=== PATIENT | female | born 1965 | race Caucasian/White ===

== ENCOUNTER → 2017-12-17 | Outpatient (CLI) | payer OTHER | LOC: M RAD 13:17 | DX: M51.26 Other intervertebral disc displacement, lumbar region (principal); M48.061 Spinal stenosis, lumbar region without neurogenic claudication | CPT/HCPCS: 72148 ==

== ENCOUNTER → 2023-10-08 | Outpatient (CLI) | payer OTHER | LOC: M RAD 07:44 | PROVIDERS: ATTEND Orthopaedic Surgery | DX: M54.2 Cervicalgia (principal); D49.2 Neoplasm of unspecified behavior of bone, soft tissue, and skin | CPT/HCPCS: 78306; A9503 ==

== ENCOUNTER 2023-10-12 13:04 | Emergency (ER) | payer OTHER ==
[~2023-10-12] VITALS: Ht 152.4 cm; Wt 59.1 kg
[2023-10-12] MEDS ORDERED: PARO5TAB PO (13:17)
[2023-10-12] MEDS ORDERED: GABA-282 PO (13:17)
[2023-10-12] MEDS ORDERED: AMIT25TA19 PO (13:17)
[2023-10-12] MEDS ORDERED: ALEN70TA82 PO (13:17)
[2023-10-12] MEDS ORDERED: ATOR40TA75 PO (13:17)
[2023-10-12] MEDS ORDERED: VITA1CAP25 PO (13:17)
[2023-10-12] MEDS: NS 500 ML IV ONE (14:11)
[2023-10-12] MEDS: NS 1,000 ML IV SCH ×2 (14:11→15:57)
[2023-10-12 14:17] LABS: HEMATOCRIT 37.5 % (36.0-47.0); HEMOGLOBIN 13.1 g/dl (12.0-15.5); MEAN CORPUSCULAR HEMOGLOBIN 31.3 pg (27.0-33.0); MEAN CORPUSCULAR HGB CONC 34.9 g/dl (32.0-36.5); MEAN CORPUSCULAR VOLUME 89.7 fl (80.0-96.0); PLATELET COUNT, AUTOMATED 180 10^3/uL (150-450); RED BLOOD COUNT 4.18 10^6/uL (4.00-5.40); WHITE BLOOD COUNT 20.5 10^3/uL (4.0-10.0)
[2023-10-12 14:21] LABS: ALBUMIN 2.4 G/DL (3.2-5.2); BILIRUBIN,DIRECT 0.3 MG/DL (<0.4); BILIRUBIN,TOTAL 0.6 MG/DL (0.3-1.2); CALCIUM LEVEL 8.5 MG/DL (8.3-10.6); CREATININE FOR GFR 3.41 MG/DL (0.55-1.30); GLOMERULAR FILTRATION RATE 14.6 (>45); POTASSIUM SERUM 3.8 MMOL/L (3.5-5.1); TOTAL PROTEIN 5.2 G/DL (5.7-8.2)
[2023-10-12 14:26] LABS: LYMPHOCYTES 2 % (16-44); NEUTROPHILS 96 % (28-66); PLATELET ESTIMATE NORMAL (NORMAL); POLYCHROMASIA 1+
[2023-10-12] MEDS: cefTRIAXone SOD 2 GM in D5W MINI-BAG PLUS 50 ML IV ONE (15:14)
[2023-10-12] MEDS: AZITHROMYCIN INJ 500 MG, VIAL MATE ADAPTER 1 EACH in D5W 250 ML IV ONE (15:48)
[2023-10-12] MEDS ORDERED: HOME MED LIST COMPLETE! XX SCH (15:55)
[2023-10-12] MEDS: MORPHINE 2 MG/ML 1ML VIAL IV PRN (15:57)
[2023-10-12] MEDS: fentaNYL 100 MCG/2 ML INJECTION IV ONE (18:28)
[2023-10-12 19:00] VITALS: BP 105/69; TEMP 97.6; O2SAT 93
== END 2023-10-12 19:08 | disposition short-term general hospital (02) ==
LOC: M ED 13:04
DX: J18.9 Pneumonia, unspecified organism (principal); N17.9 Acute kidney failure, unspecified; G95.89 Other specified diseases of spinal cord; F41.9 Anxiety disorder, unspecified; Z87.891 Personal history of nicotine dependence; Z79.899 Other long term (current) drug therapy
CPT/HCPCS: 71045; 80048; 80076; 83605; 85025; 87040; 93005; 93041; 94760; 96361; 96365; 96374; 96375; 99291; 99292; J0456; J0696; J3010

== ENCOUNTER 2023-12-11 14:58 | Emergency (ER) | payer OTHER ==
[~2023-12-11] VITALS: Ht 152.4 cm; Wt 59.9 kg
[~2023-12-11 14:58] MED LIST: ACYC200C8 PO; ALEN70TA82 PO; AMIT25TA19 PO; AMOX875T; ATOR40TA75 PO; CYCL1CAP2 PO; DEXA4TA PO; GABA-282 PO; LORAPOW30; NORT25CA2; NYST-38 PO; PARO5TAB PO; VITA1CAP25 PO
[2023-12-11 14:59] VITALS: TEMP 97.5
[2023-12-11] MEDS ORDERED: E-Z-GAS II EFFERVESCENT PACKET (SODIUM BICARB./CITRIC ACID/SIMETHICONE) As Ordered ONE (16:40)
[2023-12-11] MEDS ORDERED: E-Z-PAQUE 96% w/w SUSP 176GM BTL As Ordered ONE (16:40)
[2023-12-11] MEDS ORDERED: E-Z-HD 98% w/w 340GM SUSP BTL As Ordered ONE (16:41)
[2023-12-11 17:29] VITALS: BP 157/97; O2SAT 97
[2023-12-11 17:39] LABS: BASO % 0.8 % (0.0-1.0); EOS % 0.4 % (0.0-3.0); HEMATOCRIT 25.6 % (36.0-47.0); LYMPH # 0.8 10^3/uL (1.5-5.0); LYMPH % 15.3 % (24.0-44.0); MEAN CORPUSCULAR HEMOGLOBIN 30.3 pg (27.0-33.0); MEAN CORPUSCULAR HGB CONC 31.3 g/dl (32.0-36.5); MONO # 0.5 10^3/uL (0.0-0.8); MONO % 10.5 % (2.0-8.0); NEUTROPHILS # 3.7 10^3/uL (1.5-8.5); NEUTROPHILS % 72.4 % (36.0-66.0); PLATELET COUNT, AUTOMATED 220 10^3/uL (150-450); RED BLOOD COUNT 2.64 10^6/uL (4.00-5.40)
[2023-12-11] MEDS: NS 1,000 ML IV SCH (17:51)
[2023-12-11 17:57] LABS: CALCIUM LEVEL 8.8 MG/DL (8.3-10.6); CREATININE FOR GFR 3.66 MG/DL (0.55-1.30); GLOMERULAR FILTRATION RATE 13.5 (>45); POTASSIUM SERUM 3.8 MMOL/L (3.5-5.1)
[2023-12-12] MEDS ORDERED: POTA-298 PO (12:02)
== END 2023-12-11 19:52 | disposition short-term general hospital (02) ==
LOC: M ED 14:58
DX: Q39.4 Esophageal web (principal); N18.6 End stage renal disease; J44.9 Chronic obstructive pulmonary disease, unspecified; Z79.2 Long term (current) use of antibiotics; Z79.899 Other long term (current) drug therapy

== ENCOUNTER 2023-12-25 13:36 | Observation (INO) | payer OTHER ==
[~2023-12-25] VITALS: Ht 152.4 cm; Wt 58.8 kg
[~2023-12-25 13:36] MED LIST changes: -NORT25CA2; +NORT25CA2 PO; +POTA-298 PO
[2023-12-25] MEDS: LIDOCAINE 2% 5ML JELLY UROJET TOP ONE (14:15)
[2023-12-25] MEDS: NS 1,000 ML IV ONE (14:24)
[2023-12-25 14:46] LABS: BASO # 0.1 10^3/uL (0.0-0.2); EOS # 0.1 10^3/uL (0.0-0.5); EOS % 2.5 % (0.0-3.0); HEMATOCRIT 24.1 % (36.0-47.0); HEMOGLOBIN 7.5 g/dl (12.0-15.5); LYMPH # 0.7 10^3/uL (1.5-5.0); LYMPH % 12.7 % (24.0-44.0); MEAN CORPUSCULAR HEMOGLOBIN 30.5 pg (27.0-33.0); MEAN CORPUSCULAR HGB CONC 31.1 g/dl (32.0-36.5); MONO # 0.4 10^3/uL (0.0-0.8); MONO % 7.8 % (2.0-8.0); NEUTROPHILS # 3.8 10^3/uL (1.5-8.5); NEUTROPHILS % 75.2 % (36.0-66.0); PLATELET COUNT, AUTOMATED 212 10^3/uL (150-450); RED BLOOD COUNT 2.46 10^6/uL (4.00-5.40); WHITE BLOOD COUNT 5.1 10^3/uL (4.0-10.0)
[2023-12-25 15:12] LABS: CK-MB VALUE MASS < 1.0 NG/ML (<3.6)
[2023-12-25 15:13] LABS: LIPASE 47 U/L (12-53)
[2023-12-25 15:14] LABS: CPK CREATINE PHOSPHOKINASE 26 U/L (34-145); MB/CK RELATIVE INDEX 3.84 (< OR =4)
[2023-12-25 15:15] LABS: ALBUMIN 2.7 G/DL (3.2-5.2); ALKALINE PHOSPHATASE 94 U/L (46-116); ALT/SGPT < 9 U/L (7.0-40); AST/SGOT < 8 U/L (<34); BILIRUBIN,DIRECT 0.1 MG/DL (<0.4); BILIRUBIN,TOTAL 0.4 MG/DL (0.3-1.2); BLOOD UREA NITROGEN 14 MG/DL (9-23); CALCIUM LEVEL 8.4 MG/DL (8.3-10.6); CARBON DIOXIDE LEVEL 33 MMOL/L (20-31); CHLORIDE LEVEL 104 MMOL/L (98-107); CREATININE FOR GFR 3.23 MG/DL (0.55-1.30); GLOMERULAR FILTRATION RATE 15.6 (>45); GLUCOSE, FASTING 86 MG/DL (74-106); POTASSIUM SERUM 3.6 MMOL/L (3.5-5.1); SODIUM LEVEL 140 MMOL/L (136-145); TOTAL PROTEIN 5.2 G/DL (5.7-8.2)
[2023-12-25 15:16] LABS: FREE T4 0.88 NG/DL (0.89-1.76)
[2023-12-25 15:17] LABS: THYROID STIMULATING HORMONE 1.889 uIU/ML (0.55-4.78)
[2023-12-25 16:34] LABS: CK-MB VALUE MASS < 1.0 NG/ML (<3.6)
[2023-12-25 16:37] LABS: CPK CREATINE PHOSPHOKINASE 25 U/L (34-145)
[2023-12-25] MEDS ORDERED: ACETAMINOPHEN TAB 650MG DOSE (2X325MG) PO PRN (18:40)
[2023-12-25] MEDS ORDERED: METOCLOPRAMIDE INJ 10MG/2ML VIAL IV PRN (18:50)
[2023-12-25] MEDS ORDERED: SENOKOT S TAB PO PRN (18:50)
[2023-12-25 19:11] LABS: BASO # 0.1 10^3/uL (0.0-0.2); BASO % 1.2 % (0.0-1.0); EOS # 0.2 10^3/uL (0.0-0.5); EOS % 3.6 % (0.0-3.0); HEMATOCRIT 23.7 % (36.0-47.0); HEMOGLOBIN 7.5 g/dl (12.0-15.5); LYMPH # 0.8 10^3/uL (1.5-5.0); MEAN CORPUSCULAR HEMOGLOBIN 30.6 pg (27.0-33.0); MEAN CORPUSCULAR HGB CONC 31.6 g/dl (32.0-36.5); MEAN CORPUSCULAR VOLUME 96.7 fl (80.0-96.0); MONO # 0.3 10^3/uL (0.0-0.8); MONO % 6.3 % (2.0-8.0); NEUTROPHILS # 3.8 10^3/uL (1.5-8.5); NEUTROPHILS % 73.5 % (36.0-66.0); PLATELET COUNT, AUTOMATED 219 10^3/uL (150-450); RED BLOOD COUNT 2.45 10^6/uL (4.00-5.40); WHITE BLOOD COUNT 5.2 10^3/uL (4.0-10.0)
[2023-12-25 19:32] LABS: PERCENT SATURATION 18.4 % (13.2-45.0)
[2023-12-25] MEDS ORDERED: PANT40TA29 PO (19:34)
[2023-12-25] MEDS ORDERED: SYMB16INH INH (19:34)
[2023-12-25] MEDS ORDERED: ATIV1TAB10 PO (19:34)
[2023-12-25] MEDS ORDERED: BACT400T PO (19:34)
[2023-12-25] MEDS ORDERED: VENTAER INH (19:34)
[2023-12-25] MEDS ORDERED: BUME2TAB3 PO (19:34)
[2023-12-25] MEDS ORDERED: ACYC200C8 PO (19:34)
[2023-12-25] MEDS ORDERED: HOME MED LIST COMPLETE! XX SCH (19:40)
[2023-12-25] MEDS: CEFEPIME HCL 2 GM in D5W MINI-BAG PLUS 50 ML IV ONE (20:10)
[2023-12-25] MEDS: ACYCLOVIR 200 MG CAPSULE PO SCH (20:51)
[2023-12-25] MEDS: VANCOMYCIN HCL 750 MG, VIAL MATE ADAPTER 1 EACH in D5W 250 ML IV ONE (20:51)
[2023-12-25] MEDS: VANCOMYCIN HCL 500 MG in D5W MINI-BAG PLUS 100 ML IV ONE (21:55)
[2023-12-26] VITALS (7 sets, daily range): BP systolic 132–144; BP diastolic 78–85; TEMP 97.9–98.1; O2SAT 84–95
[2023-12-26] MEDS ORDERED: LIDOCAINE 1% SDV 5ML VIAL SC PRN (06:00)
[2023-12-26] MEDS ORDERED: HEPARIN 1,000UNITS/ML 10ML VIAL (FOR RADIOLOGY & DIALYSIS ONLY) IV PRN (06:00)
[2023-12-26] MEDS ORDERED: SODIUM CHLORIDE 0.9% 1000ML IV PRN (06:00)
[2023-12-26 06:52] LABS: HEMATOCRIT 26.5 % (36.0-47.0); HEMOGLOBIN 8.3 g/dl (12.0-15.5); MEAN CORPUSCULAR HEMOGLOBIN 30.2 pg (27.0-33.0); MEAN CORPUSCULAR HGB CONC 31.3 g/dl (32.0-36.5); MEAN CORPUSCULAR VOLUME 96.4 fl (80.0-96.0); PLATELET COUNT, AUTOMATED 212 10^3/uL (150-450); RED BLOOD COUNT 2.75 10^6/uL (4.00-5.40); WHITE BLOOD COUNT 7.5 10^3/uL (4.0-10.0)
[2023-12-26 07:26] LABS: ALBUMIN 2.9 G/DL (3.2-5.2); ALKALINE PHOSPHATASE 91 U/L (46-116); ALT/SGPT < 9 U/L (7.0-40); AST/SGOT 12 U/L (<34); BILIRUBIN,TOTAL 0.3 MG/DL (0.3-1.2); BLOOD UREA NITROGEN 20 MG/DL (9-23); CALCIUM LEVEL 9.1 MG/DL (8.3-10.6); CARBON DIOXIDE LEVEL 27 MMOL/L (20-31); CHLORIDE LEVEL 105 MMOL/L (98-107); GLOMERULAR FILTRATION RATE 12.9 (>45); GLUCOSE, FASTING 84 MG/DL (74-106); MAGNESIUM LEVEL 1.7 MG/DL (1.8-2.4); POTASSIUM SERUM 3.6 MMOL/L (3.5-5.1); SODIUM LEVEL 141 MMOL/L (136-145); TOTAL PROTEIN 5.4 G/DL (5.7-8.2)
[2023-12-26 07:37] LABS: PROCALCITONIN 0.21 ng/ml
[2023-12-26] MEDS: CEFEPIME HCL 1 GM in D5W MINI-BAG PLUS 50 ML IV SCH ×2 (07:39→19:59)
[2023-12-26] MEDS: dexAMETHasone 4 MG TAB PO SCH (07:39)
[2023-12-26] MEDS: PANTOPRAZOLE 40MG TAB (PROTONIX) PO SCH (07:39)
[2023-12-26] MEDS ORDERED: VANCOMYCIN HCL 1,000 MG, VIAL MATE ADAPTER 1 EACH in D5W 250 ML IV SCH ×2 (09:00→16:00)
[2023-12-26 09:44] LABS: VANCOMYCIN RANDOM 22.3 UG/ML
[2023-12-26] MEDS: HEPARIN 1,000UNITS/ML 10ML VIAL (FOR RADIOLOGY & DIALYSIS ONLY) XX SCH (09:47)
[2023-12-26] MEDS: IRON SUCROSE 100MG 5ML VIAL IV SCH (10:55)
[2023-12-26] MEDS: DARBEPOETIN 200MCG/0.4ML *DIALYSIS* SYRINGE IV SCH (11:43)
[2023-12-26] MEDS: MAG SULF 1GM/100ML (MAG RUN) 1 GM in IV 1 EA IV SCH (12:29)
[2023-12-26] MEDS ORDERED: VANCOMYCIN HCL 750 MG, VIAL MATE ADAPTER 1 EACH in D5W 250 ML IV SCH (16:00)
[2023-12-26] MEDS: LORazepam 0.5 MG TAB PO PRN (22:59)
[2023-12-27] VITALS (10 sets, daily range): BP systolic 128–153; BP diastolic 78–93; TEMP 97.5–97.9; O2SAT 85–99
[2023-12-27] MEDS: LEVALBUTEROL HFA 45MCG/ACT 15GM INHALER INH ONE (00:59)
[2023-12-27 06:11] LABS: BASO # 0.1 10^3/uL (0.0-0.2); BASO % 0.6 % (0.0-1.0); EOS % 0.2 % (0.0-3.0); HEMATOCRIT 23.9 % (36.0-47.0); HEMOGLOBIN 7.9 g/dl (12.0-15.5); LYMPH # 0.8 10^3/uL (1.5-5.0); LYMPH % 7.7 % (24.0-44.0); MEAN CORPUSCULAR HEMOGLOBIN 31.5 pg (27.0-33.0); MEAN CORPUSCULAR HGB CONC 33.1 g/dl (32.0-36.5); MEAN CORPUSCULAR VOLUME 95.2 fl (80.0-96.0); MONO # 0.5 10^3/uL (0.0-0.8); MONO % 4.7 % (2.0-8.0); NEUTROPHILS # 8.7 10^3/uL (1.5-8.5); NEUTROPHILS % 86.1 % (36.0-66.0); PLATELET COUNT, AUTOMATED 203 10^3/uL (150-450); RED BLOOD COUNT 2.51 10^6/uL (4.00-5.40); WHITE BLOOD COUNT 10.1 10^3/uL (4.0-10.0)
[2023-12-27 06:31] LABS: CALCIUM LEVEL 9.4 MG/DL (8.3-10.6); CREATININE FOR GFR 2.74 MG/DL (0.55-1.30); GLOMERULAR FILTRATION RATE 18.8 (>45); MAGNESIUM LEVEL 2.6 MG/DL (1.8-2.4); POTASSIUM SERUM 3.8 MMOL/L (3.5-5.1)
[2023-12-27] MEDS: MAGNESIUM OXIDE 400MG TAB (MAG-OX) PO SCH (08:06)
[2023-12-27] MEDS ORDERED: DOXY-440 PO (11:50)
[2023-12-27] MEDS ORDERED: CEFD1CAP9 PO (11:50)
[2024-01-02] MEDS ORDERED: PANT40TA29 PO (11:26)
[2024-01-02] MEDS ORDERED: BACT400T PO (11:27)
== END 2023-12-27 14:10 | disposition home or self-care (01) ==
LOC: EDBD 13:36 → M ED 13:36 → INTOOBSV 18:38 → M ED INP 18:38 → M MSPAV 12-26 04:12
PROVIDERS: ADMIT Hospitalist; ATTEND Hospitalist
DX: I95.9 Hypotension, unspecified (principal); C90.00 Multiple myeloma not having achieved remission; N18.6 End stage renal disease; Z99.2 Dependence on renal dialysis; R42 Dizziness and giddiness; G62.9 Polyneuropathy, unspecified; F32.A Depression, unspecified; E78.5 Hyperlipidemia, unspecified; K22.2 Esophageal obstruction; J98.11 Atelectasis; D49.2 Neoplasm of unspecified behavior of bone, soft tissue, and skin; M54.2 Cervicalgia; D64.9 Anemia, unspecified; M81.0 Age-related osteoporosis without current pathological fracture; F41.9 Anxiety disorder, unspecified; Z80.3 Family history of malignant neoplasm of breast; Z79.899 Other long term (current) drug therapy; Z87.891 Personal history of nicotine dependence
CPT/HCPCS: 36415; 51701; 71045; 80047; 80048; 80053; 80076; 80202; 81001; 82550; 82553; 83550; 83605; 83690; 83735; 84145; 84439; 84443; 84484; 85025; 85027; 86850; 86870; 86900; 86901; 87040; 87641; 93005; 93041; 94640; 94760; 96365; 96366; 96367; 96368; 97116; 97161; 99285; J0692; J0882; J1756; J3370; J3475

== ENCOUNTER 2024-01-04 10:31 | Emergency (ER) | payer OTHER ==
[~2024-01-04] VITALS: Ht 152.4 cm; Wt 57.7 kg
[~2024-01-04 10:31] MED LIST changes: +ATIV1TAB10 PO; +BACT400T PO; +BUME2TAB3 PO; +CEFD1CAP9 PO; +DOXY-440 PO; +PANT40TA29 PO; +SYMB16INH INH; +VENTAER INH
[2024-01-04 13:33] VITALS: BP 133/68; TEMP 96.1; O2SAT 98
== END 2024-01-04 13:37 | disposition home or self-care (01) ==
LOC: M ED 10:31
DX: S82.444A Nondisplaced spiral fracture of shaft of right fibula, initial encounter for closed fracture (principal); Y92.019 Unspecified place in single-family (private) house as the place of occurrence of the external cause; Y93.9 Activity, unspecified; Y99.9 Unspecified external cause status; Z79.51 Long term (current) use of inhaled steroids; Z79.899 Other long term (current) drug therapy

== ENCOUNTER 2024-01-09 14:59 | Outpatient (CLI) | payer OTHER ==
[~2024-01-09] VITALS: Ht 152.4 cm; Wt 57.7 kg
[2024-01-09 15:10] VITALS: BP 91/55; O2SAT 94
[2024-01-09] MEDS: diphenhydrAMINE 25MG CAP PO ONE (15:34)
[2024-01-09] MEDS: ACETAMINOPHEN TAB 650MG DOSE (2X325MG) PO ONE (15:34)
[2024-01-09 15:48] VITALS: BP 87/48; TEMP 97.2; O2SAT 94
[2024-01-09 16:04] VITALS: BP 90/55; O2SAT 97
[2024-01-09 16:48] VITALS: BP 92/52; O2SAT 96
[2024-01-09 17:48] VITALS: BP 100/59; TEMP 97; O2SAT 100
== END 2024-01-09 17:55 ==
LOC: M INFU 14:59
PROVIDERS: ATTEND Internal Medicine Nephrology
DX: N17.9 Acute kidney failure, unspecified (principal); D64.9 Anemia, unspecified
CPT/HCPCS: 36430; P9016

== ENCOUNTER → 2024-01-09 | Outpatient (CLI) | payer OTHER | LOC: M LAB 11:08 | PROVIDERS: ATTEND Internal Medicine Nephrology | DX: D64.9 Anemia, unspecified (principal) ==

== ENCOUNTER 2024-01-17 10:49 | Inpatient (IN) | payer OTHER ==
[~2024-01-17] VITALS: Ht 152.4 cm; Wt 63.2 kg
[2024-01-17 11:33] LABS: ABG HCO3 21.3 MMOL/L (22.0-26.0); ABG O2 SATURATION 94.8 % (95.0-99.0); ABG PARTIAL PRESSURE CO2 35.1 mmHg (35.0-45.0); ABG PARTIAL PRESSURE O2 78.2 mmHg (75.0-100.0); ABG STANDARD HCO3 21.9 MMOL/L. (22.0-26.0); ABG TOTAL CO2 22.4 MMOL/L (23.0-31.0); ABG pH (ARTERIAL) 7.401 UNITS (7.350-7.450)
[2024-01-17] MEDS: NS 500 ML IV ONE ×2 (11:33→12:40)
[2024-01-17 11:45] LABS: INR 1.19; PARTIAL THROMBOPLASTIN TIME 33.6 SECONDS (24.8-34.2); PROTHROMBIN TIME 14.8 SECONDS (12.5-14.5)
[2024-01-17 11:46] LABS: BASO % 0.7 % (0.0-1.0); EOS % 0.2 % (0.0-3.0); HEMATOCRIT 30.9 % (36.0-47.0); LYMPH # 0.1 10^3/uL (1.5-5.0); LYMPH % 3.1 % (24.0-44.0); MEAN CORPUSCULAR HEMOGLOBIN 31.8 pg (27.0-33.0); MEAN CORPUSCULAR HGB CONC 32.4 g/dl (32.0-36.5); MEAN CORPUSCULAR VOLUME 98.4 fl (80.0-96.0); MONO % 0.5 % (2.0-8.0); NEUTROPHILS % 94.6 % (36.0-66.0); PLATELET COUNT, AUTOMATED 155 10^3/uL (150-450); RED BLOOD COUNT 3.14 10^6/uL (4.00-5.40); WHITE BLOOD COUNT 4.2 10^3/uL (4.0-10.0)
[2024-01-17 11:48] LABS: CK-MB VALUE MASS 1.1 NG/ML (<3.6)
[2024-01-17 11:49] LABS: AMYLASE 105 U/L (30-118)
[2024-01-17 11:50] LABS: CPK CREATINE PHOSPHOKINASE 140 U/L (34-145); MB/CK RELATIVE INDEX 0.78 (< OR =4)
[2024-01-17 11:57] LABS: PROCALCITONIN 15.33 ng/ml
[2024-01-17 11:59] LABS: ALBUMIN 2.5 G/DL (3.2-5.2); ALKALINE PHOSPHATASE 110 U/L (46-116); ALT/SGPT 43 U/L (7.0-40); AST/SGOT 48 U/L (<34); BILIRUBIN,DIRECT < 0.1 MG/DL (<0.4); BILIRUBIN,TOTAL 0.2 MG/DL (0.3-1.2); BLOOD UREA NITROGEN 39 MG/DL (9-23); CALCIUM LEVEL 8.3 MG/DL (8.3-10.6); CARBON DIOXIDE LEVEL 26 MMOL/L (20-31); CHLORIDE LEVEL 102 MMOL/L (98-107); CREATININE FOR GFR 5.35 MG/DL (0.55-1.30); GLOMERULAR FILTRATION RATE 8.7 (>45); GLUCOSE, FASTING 84 MG/DL (74-106); POTASSIUM SERUM 4.7 MMOL/L (3.5-5.1); SODIUM LEVEL 136 MMOL/L (136-145)
[2024-01-17] MEDS ORDERED: HEPARIN 1,000UNITS/ML 10ML VIAL (FOR RADIOLOGY & DIALYSIS ONLY) IV PRN (12:35)
[2024-01-17] MEDS ORDERED: HEPARIN 1,000UNITS/ML 10ML VIAL (FOR RADIOLOGY & DIALYSIS ONLY) XX SCH (12:35)
[2024-01-17] MEDS ORDERED: SODIUM CHLORIDE 0.9% 1000ML IV PRN (12:35)
[2024-01-17 13:44] LABS: APPEARANCE, URINE CLEAR (CLEAR); BACTERIA, URINE AUTO NEGATIVE (NEGATIVE); BILIRUBIN, URINE AUTO NEGATIVE (NEGATIVE); BLOOD, URINE BLOOD 1+ (NEGATIVE); COLOR, URINE STRAW (YELLOW); GLUCOSE, URINE (UA) AUTO NEGATIVE (NEGATIVE); KETONE, URINE AUTO NEGATIVE (NEGATIVE); LEUKOCYTE ESTERASE, URINE AUTO NEGATIVE (NEGATIVE); MUCUS, URINE SMALL (NEGATIVE); NITRITE, URINE AUTO NEGATIVE (NEGATIVE); PROTEIN, URINE AUTO 1+ mg/dL (NEGATIVE); RBC, URINE AUTO 1 /HPF (0-3); SPECIFIC GRAVITY URINE AUTO 1.005 (1.002-1.035); SQUAMOUS EPITHELIAL CELL UR AU 3 /HPF (0-6); UROBILINOGEN, URINE AUTO 0.2 mg/dL (0.0-2.0); WBC, URINE AUTO 3 /HPF (0-3)
[2024-01-17] MEDS ORDERED: VANCOMYCIN HCL 1,000 MG, VIAL MATE ADAPTER 1 EACH in NS 250 ML IV SCH ×2 (13:50→16:00)
[2024-01-17] MEDS ORDERED: **NOTE PATIENT COMMENT** MISC XX SCH (13:50)
[2024-01-17] MEDS: IPRATROPIUM 0.5MG/ALBUTEROL 2.5MG INH SOL UD 3ML (DUONEB) NEB ONE (13:53)
[2024-01-17] MEDS: NS 1,000 ML IV SCH (14:37)
[2024-01-17] MEDS: ACETAMINOPHEN TAB 650MG DOSE (2X325MG) PO PRN (14:38)
[2024-01-17] MEDS ORDERED: SENN-83 PO (14:40)
[2024-01-17] MEDS ORDERED: DEXA4TA PO (14:40)
[2024-01-17] MEDS ORDERED: ACET1TAB55 PO (14:42)
[2024-01-17] MEDS ORDERED: HOME MED LIST COMPLETE! XX SCH (14:45)
[2024-01-17] MEDS: LORazepam 0.5 MG TAB PO SCH (15:53)
[2024-01-17 19:34] VITALS: BP 119/58; TEMP 97.8; O2SAT 98
[2024-01-17] MEDS ORDERED: SYMBICORT 160/4.5MCG INHALER 6GM INH SCH (20:00)
[2024-01-17] MEDS: NYSTATIN 500,000U/5ML SUSP UDC PO SCH (21:00)
[2024-01-17] MEDS: ACYCLOVIR 200 MG CAPSULE PO SCH (21:49)
[2024-01-17] MEDS: NORTRIPTYLINE 25 MG CAP PO SCH (21:49)
[2024-01-17] MEDS: GABAPENTIN 300 MG CAP PO SCH (21:49)
[2024-01-17] MEDS: BACTRIM 80MG/400MG TAB PO SCH (21:49)
[2024-01-17] MEDS: VANCOMYCIN HCL 1,000 MG, VIAL MATE ADAPTER 1 EACH in D5W 250 ML IV ONE (21:49)
[2024-01-17] MEDS: SENNA 8.6 MG TAB (SENOKOT) PO SCH (21:49)
[2024-01-17] MEDS ORDERED: LEVALBUTEROL 1.25MG 0.5ML CONCENTRATE NEB INH PRN (23:50)
[2024-01-18] VITALS (20 sets, daily range): BP systolic 94–164; BP diastolic 51–85; TEMP 96.8–98; O2SAT 88–99
[2024-01-18] MEDS: IPRATROPIUM 0.5MG/ALBUTEROL 2.5MG INH SOL UD 3ML (DUONEB) NEB PRN (00:11)
[2024-01-18] MEDS: FUROSEMIDE 100MG/10ML VIAL IV ONE (00:18)
[2024-01-18] MEDS: IPRATROPIUM 0.5MG/ALBUTEROL 2.5MG INH SOL UD 3ML (DUONEB) NEB STA (00:56)
[2024-01-18 01:31] LABS: ABG BASE EXCESS -7.4 (-2.0-2.0); ABG HCO3 17.7 MMOL/L (22.0-26.0); ABG O2 SATURATION 95.5 % (95.0-99.0); ABG PARTIAL PRESSURE CO2 34.4 mmHg (35.0-45.0); ABG PARTIAL PRESSURE O2 84.7 mmHg (75.0-100.0); ABG STANDARD HCO3 18.4 MMOL/L. (22.0-26.0); ABG TOTAL CO2 18.7 MMOL/L (23.0-31.0); ABG pH (ARTERIAL) 7.329 UNITS (7.350-7.450)
[2024-01-18 04:33] LABS: HEMATOCRIT 27.3 % (36.0-47.0); HEMOGLOBIN 8.8 g/dl (12.0-15.5); MEAN CORPUSCULAR HEMOGLOBIN 31.5 pg (27.0-33.0); MEAN CORPUSCULAR HGB CONC 32.2 g/dl (32.0-36.5); MEAN CORPUSCULAR VOLUME 97.8 fl (80.0-96.0); PLATELET COUNT, AUTOMATED 129 10^3/uL (150-450); RED BLOOD COUNT 2.79 10^6/uL (4.00-5.40); WHITE BLOOD COUNT 4.2 10^3/uL (4.0-10.0)
[2024-01-18 04:46] LABS: VANCOMYCIN RANDOM 18.6 UG/ML
[2024-01-18 04:48] LABS: ALBUMIN 2.2 G/DL (3.2-5.2); CALCIUM LEVEL 7.9 MG/DL (8.3-10.6); CREATININE FOR GFR 5.25 MG/DL (0.55-1.30); GLOMERULAR FILTRATION RATE 8.9 (>45); PHOSPHORUS LEVEL 9.5 MG/DL (2.4-5.1); POTASSIUM SERUM 4.6 MMOL/L (3.5-5.1)
[2024-01-18] MEDS ORDERED: SODIUM CHLORIDE 0.9% 1000ML IV PRN (06:00)
[2024-01-18] MEDS ORDERED: LIDOCAINE 1% SDV 5ML VIAL SC PRN (06:00)
[2024-01-18] MEDS ORDERED: HEPARIN 1,000UNITS/ML 10ML VIAL (FOR RADIOLOGY & DIALYSIS ONLY) XX SCH (06:00)
[2024-01-18] MEDS: PANTOPRAZOLE 40MG TAB (PROTONIX) PO ONE (06:16)
[2024-01-18] MEDS: ATORVASTATIN 20 MG TAB PO SCH (06:16)
[2024-01-18] MEDS: PARoxetine 10MG TABLET PO SCH (06:17)
[2024-01-18] MEDS: ATORVASTATIN 20 MG TAB PO ONE (06:18)
[2024-01-18] MEDS: PANTOPRAZOLE 40MG TAB (PROTONIX) PO SCH (06:51)
[2024-01-18] MEDS: HEPARIN 1,000UNITS/ML 10ML VIAL (FOR RADIOLOGY & DIALYSIS ONLY) IV PRN (11:08)
[2024-01-18] MEDS: FUROSEMIDE 100MG/10ML VIAL IV SCH (16:43)
[2024-01-18] MEDS: VANCOMYCIN HCL 500 MG in D5W MINI-BAG PLUS 100 ML IV SCH (16:44)
[2024-01-19] VITALS (18 sets, daily range): BP systolic 83–121; BP diastolic 50–66; TEMP 97–98.6; O2SAT 94–100
[2024-01-19 05:14] LABS: HEMATOCRIT 26.3 % (36.0-47.0); HEMOGLOBIN 8.6 g/dl (12.0-15.5); MEAN CORPUSCULAR HEMOGLOBIN 32.1 pg (27.0-33.0); MEAN CORPUSCULAR HGB CONC 32.7 g/dl (32.0-36.5); MEAN CORPUSCULAR VOLUME 98.1 fl (80.0-96.0); PLATELET COUNT, AUTOMATED 155 10^3/uL (150-450); RED BLOOD COUNT 2.68 10^6/uL (4.00-5.40); WHITE BLOOD COUNT 4.3 10^3/uL (4.0-10.0)
[2024-01-19 05:36] LABS: VANCOMYCIN RANDOM 18.8 UG/ML
[2024-01-19 05:41] LABS: ALBUMIN 2.4 G/DL (3.2-5.2); CALCIUM LEVEL 7.7 MG/DL (8.3-10.6); CREATININE FOR GFR 3.25 MG/DL (0.55-1.30); GLOMERULAR FILTRATION RATE 15.5 (>45); PHOSPHORUS LEVEL 4.2 MG/DL (2.4-5.1); POTASSIUM SERUM 4.1 MMOL/L (3.5-5.1)
[2024-01-19] MEDS: LR 500 ML IV ONE (16:00)
[2024-01-20] VITALS (8 sets, daily range): BP systolic 97–126; BP diastolic 45–65; TEMP 97.2–98.2; O2SAT 84–97
[2024-01-20 05:48] LABS: HEMOGLOBIN 8.3 g/dl (12.0-15.5); MEAN CORPUSCULAR HEMOGLOBIN 31.3 pg (27.0-33.0); MEAN CORPUSCULAR HGB CONC 31.9 g/dl (32.0-36.5); MEAN CORPUSCULAR VOLUME 98.1 fl (80.0-96.0); PLATELET COUNT, AUTOMATED 165 10^3/uL (150-450); RED BLOOD COUNT 2.65 10^6/uL (4.00-5.40); WHITE BLOOD COUNT 3.1 10^3/uL (4.0-10.0)
[2024-01-20 06:10] LABS: ALBUMIN 2.2 G/DL (3.2-5.2); CREATININE FOR GFR 4.39 MG/DL (0.55-1.30); GLOMERULAR FILTRATION RATE 10.9 (>45); PHOSPHORUS LEVEL 6.4 MG/DL (2.4-5.1); POTASSIUM SERUM 3.8 MMOL/L (3.5-5.1)
[2024-01-20 08:43] LABS: VANCOMYCIN RANDOM 14.2 UG/ML
[2024-01-20 08:56] LABS: PROCALCITONIN 5.4 ng/ml
[2024-01-20] MEDS: VANCOMYCIN HCL 750 MG, VIAL MATE ADAPTER 1 EACH in D5W 250 ML IV ONE (11:13)
[2024-01-24] MEDS ORDERED: dexAMETHasone 4 MG TAB PO SCH (09:00)
== END 2024-01-20 16:08 | disposition home or self-care (01) | DRG 207 ==
LOC: M ED 10:49 → M ED INP 13:47 → M PCU 19:28 → M ICU 01-18 00:59 → M MSPAV 01-19 16:54
PROVIDERS: ADMIT Family Medicine; ATTEND Family Medicine
PROC: 5A1D70Z Performance of Urinary Filtration, Intermittent, Less than 6 Hours Per Day (ICD-10-PCS; principal; 2024-01-17)
DX: I95.9 Hypotension, unspecified (principal); N18.6 End stage renal disease; C90.00 Multiple myeloma not having achieved remission; D69.6 Thrombocytopenia, unspecified; E87.20 Acidosis, unspecified; K22.2 Esophageal obstruction; E78.5 Hyperlipidemia, unspecified; E55.9 Vitamin D deficiency, unspecified; F32.A Depression, unspecified; M81.0 Age-related osteoporosis without current pathological fracture; R50.9 Fever, unspecified; F41.9 Anxiety disorder, unspecified; D63.0 Anemia in neoplastic disease; D63.1 Anemia in chronic kidney disease; J98.11 Atelectasis; Z66 Do not resuscitate; Z79.899 Other long term (current) drug therapy; Z99.2 Dependence on renal dialysis; Z80.3 Family history of malignant neoplasm of breast; Z79.69 Long term (current) use of other immunomodulators and immunosuppressants

== ENCOUNTER → 2024-01-23 | Outpatient (CLI) | payer OTHER ==
[~2024-01-23] MED LIST changes: +ACET1TAB55 PO; +SENN-83 PO
== END ==
LOC: M PLAIMG 13:30
PROVIDERS: ATTEND Internal Medicine Hematology & Oncology
DX: C90.00 Multiple myeloma not having achieved remission (principal)

== ENCOUNTER 2024-02-11 05:49 | Emergency (ER) | payer OTHER ==
[~2024-02-11] VITALS: Ht 152.4 cm; Wt 62.3 kg
[~2024-02-11 05:49] MED LIST changes: +CALC500T61 PO; +SENN-187 PO; -SENN-83 PO
[2024-02-11 06:30] LABS: BASO % 0.5 % (0.0-1.0); EOS # 0.1 10^3/uL (0.0-0.5); EOS % 1.5 % (0.0-3.0); HEMATOCRIT 30.1 % (36.0-47.0); HEMOGLOBIN 9.6 g/dl (12.0-15.5); LYMPH # 0.5 10^3/uL (1.5-5.0); LYMPH % 8.6 % (24.0-44.0); MEAN CORPUSCULAR HEMOGLOBIN 32.4 pg (27.0-33.0); MEAN CORPUSCULAR HGB CONC 31.9 g/dl (32.0-36.5); MEAN CORPUSCULAR VOLUME 101.7 fl (80.0-96.0); MONO # 0.4 10^3/uL (0.0-0.8); MONO % 6.4 % (2.0-8.0); NEUTROPHILS # 4.9 10^3/uL (1.5-8.5); NEUTROPHILS % 82.3 % (36.0-66.0); PLATELET COUNT, AUTOMATED 176 10^3/uL (150-450); RED BLOOD COUNT 2.96 10^6/uL (4.00-5.40); WHITE BLOOD COUNT 5.9 10^3/uL (4.0-10.0)
[2024-02-11 07:14] LABS: ALBUMIN 3.2 G/DL (3.2-5.2); ALKALINE PHOSPHATASE 142 U/L (46-116); ALT/SGPT 177 U/L (7.0-40); AST/SGOT 60 U/L (<34); BILIRUBIN,DIRECT < 0.1 MG/DL (<0.4); BILIRUBIN,TOTAL 0.3 MG/DL (0.3-1.2); CK-MB VALUE MASS < 1.0 NG/ML (<3.6); TOTAL PROTEIN 5.6 G/DL (5.7-8.2)
[2024-02-11 07:16] LABS: THYROID STIMULATING HORMONE 4.085 uIU/ML (0.55-4.78)
[2024-02-11 07:38] LABS: CPK CREATINE PHOSPHOKINASE 17 U/L (34-145); MB/CK RELATIVE INDEX 5.88 (< OR =4)
[2024-02-11] MEDS ORDERED: CALC500T31 PO (10:08)
[2024-02-11] MEDS ORDERED: ONDA-84 PO (10:08)
[2024-02-11] MEDS ORDERED: ASPI1TAB22 PO (10:08)
[2024-02-11] MEDS ORDERED: MED REC IN PROGRESS XX SCH (10:15)
[2024-02-11 10:30] VITALS: BP 119/61; TEMP 97.6; O2SAT 97
== END 2024-02-11 10:55 | disposition left against medical advice (07) ==
LOC: M ED 05:49
DX: R29.6 Repeated falls (principal); Z99.2 Dependence on renal dialysis; J44.9 Chronic obstructive pulmonary disease, unspecified; Z87.891 Personal history of nicotine dependence; Z79.51 Long term (current) use of inhaled steroids; Z79.1 Long term (current) use of non-steroidal anti-inflammatories (NSAID); Z79.899 Other long term (current) drug therapy; Z53.9 Procedure and treatment not carried out, unspecified reason

== ENCOUNTER 2024-02-13 07:38 | Emergency (ER) | payer OTHER ==
[~2024-02-13] VITALS: Ht 152.4 cm; Wt 61.4 kg
[~2024-02-13 07:38] MED LIST changes: +ASPI1TAB22 PO; +CALC500T31 PO; +ONDA-84 PO
[2024-02-13 08:26] LABS: BASO % 0.5 % (0.0-1.0); EOS # 0.3 10^3/uL (0.0-0.5); HEMATOCRIT 29.5 % (36.0-47.0); HEMOGLOBIN 9.2 g/dl (12.0-15.5); LYMPH # 0.4 10^3/uL (1.5-5.0); LYMPH % 6.1 % (24.0-44.0); MEAN CORPUSCULAR HEMOGLOBIN 32.3 pg (27.0-33.0); MEAN CORPUSCULAR HGB CONC 31.2 g/dl (32.0-36.5); MEAN CORPUSCULAR VOLUME 103.5 fl (80.0-96.0); MONO # 0.2 10^3/uL (0.0-0.8); NEUTROPHILS # 5.4 10^3/uL (1.5-8.5); NEUTROPHILS % 85.1 % (36.0-66.0); PLATELET COUNT, AUTOMATED 183 10^3/uL (150-450); RED BLOOD COUNT 2.85 10^6/uL (4.00-5.40); WHITE BLOOD COUNT 6.3 10^3/uL (4.0-10.0)
[2024-02-13 08:39] LABS: INR 0.97; PARTIAL THROMBOPLASTIN TIME 30.1 SECONDS (24.8-34.2); PROTHROMBIN TIME 12.6 SECONDS (12.5-14.5)
[2024-02-13 08:52] LABS: ALBUMIN 3.1 G/DL (3.2-5.2); BILIRUBIN,DIRECT 0.1 MG/DL (<0.4); BILIRUBIN,TOTAL 0.6 MG/DL (0.3-1.2); CALCIUM LEVEL 9.4 MG/DL (8.3-10.6); CREATININE FOR GFR 4.6 MG/DL (0.55-1.30); GLOMERULAR FILTRATION RATE 10.3 (>45); POTASSIUM SERUM 5.1 MMOL/L (3.5-5.1); TOTAL PROTEIN 5.8 G/DL (5.7-8.2)
[2024-02-13] MEDS: HEPARIN 1,000UNITS/ML 10ML VIAL (FOR RADIOLOGY & DIALYSIS ONLY) XX ONE (13:15)
[2024-02-13 13:38] VITALS: BP 134/59; TEMP 97.7; O2SAT 99
== END 2024-02-13 13:49 | disposition home or self-care (01) ==
LOC: M ED 07:38
DX: T82.49XA Other complication of vascular dialysis catheter, initial encounter (principal); E78.5 Hyperlipidemia, unspecified; F41.9 Anxiety disorder, unspecified; F32.A Depression, unspecified; Z79.1 Long term (current) use of non-steroidal anti-inflammatories (NSAID); Z79.51 Long term (current) use of inhaled steroids; Z79.2 Long term (current) use of antibiotics; Z79.899 Other long term (current) drug therapy

== ENCOUNTER → 2024-03-19 | Outpatient (CLI) | payer OTHER ==
[~2024-03-19] MED LIST changes: -CALC500T31 PO; +GABA-1172 PO; -GABA-282 PO; +OYST500T16 PO; +PROHANCE 279.3MG/ML 15ML VIAL ONE
== END ==
LOC: M PLAIMG 12:32
PROVIDERS: ATTEND Nurse Practitioner Family
DX: G95.89 Other specified diseases of spinal cord (principal)

== ENCOUNTER → 2024-07-10 | Outpatient (CLI) | payer MEDICARE ==
[~2024-07-10] VITALS: Ht 152.4 cm; Wt 66.8 kg
[~2024-07-10] MED LIST changes: +AMOX875T2; +LIDOCAINE 1% MDV 20ML VIAL As Ordered ONE; +MIDAZOLAM INJ 2MG/2ML VIAL As Ordered ONE; +NS (Normal Saline) 0.9% 1,000 ML IV SCH; -PROHANCE 279.3MG/ML 15ML VIAL ONE; +ceFAZolin 2 GM/D5W 50 ML IV BAG As Ordered ONE; +fentaNYL 100 MCG/2 ML INJECTION As Ordered ONE
[2024-07-10 10:55] VITALS: TEMP 97.3
[2024-07-10] MEDS: ceFAZolin SOD 2 GM in IV 1 EA IV ONE (11:21)
[2024-07-10 12:36] VITALS: BP 116/66; O2SAT 96
== END ==
LOC: M IRPRO 10:20
PROVIDERS: ATTEND Nurse Practitioner Women's Health
DX: C90.00 Multiple myeloma not having achieved remission (principal)

== ENCOUNTER 2024-07-30 10:21 | Inpatient (IN) | payer MEDICARE, OTHER ==
[~2024-07-30] VITALS: Ht 152.4 cm; Wt 63.0 kg
[~2024-07-30 10:21] MED LIST changes: +AMOX500C PO; +LIDO30CR18 TOP; -LIDOCAINE 1% MDV 20ML VIAL As Ordered ONE; -MIDAZOLAM INJ 2MG/2ML VIAL As Ordered ONE; -NS (Normal Saline) 0.9% 1,000 ML IV SCH; +VITAD400CA FT; -ceFAZolin 2 GM/D5W 50 ML IV BAG As Ordered ONE; -fentaNYL 100 MCG/2 ML INJECTION As Ordered ONE
[2024-07-30 11:54] LABS: C REACTIVE PROTEIN QUANTITATIV 0.88 MG/DL (<1.0)
[2024-07-30 12:01] LABS: PROCALCITONIN 0.46 ng/ml
[2024-07-30 12:03] LABS: ALBUMIN 3.5 G/DL (3.2-5.2); ALKALINE PHOSPHATASE 112 U/L (35-104); ALT/SGPT 24 U/L (7.0-40); AST/SGOT 29 U/L (<34); BILIRUBIN,DIRECT < 0.1 MG/DL (<0.4); BILIRUBIN,TOTAL 0.4 MG/DL (0.3-1.2); BLOOD UREA NITROGEN 13 MG/DL (9-23); CALCIUM LEVEL 8.1 MG/DL (8.3-10.6); CARBON DIOXIDE LEVEL 28 MMOL/L (20-31); CHLORIDE LEVEL 101 MMOL/L (98-107); CREATININE FOR GFR 2.01 MG/DL (0.55-1.30); GLOMERULAR FILTRATION RATE 26.8 (>45); GLUCOSE, FASTING 94 MG/DL (74-106); POTASSIUM SERUM 3.8 MMOL/L (3.5-5.1); SODIUM LEVEL 141 MMOL/L (136-145); TOTAL PROTEIN 6.5 G/DL (5.7-8.2)
[2024-07-30 12:43] LABS: BASO % 0.7 % (0.0-1.0); EOS % 0.9 % (0.0-3.0); HEMATOCRIT 34.3 % (36.0-47.0); HEMOGLOBIN 11.1 g/dl (12.0-15.5); LYMPH # 0.4 10^3/uL (1.5-5.0); LYMPH % 8.6 % (24.0-44.0); MEAN CORPUSCULAR HEMOGLOBIN 33.2 pg (27.0-33.0); MEAN CORPUSCULAR HGB CONC 32.4 g/dl (32.0-36.5); MEAN CORPUSCULAR VOLUME 102.7 fl (80.0-96.0); MONO # 0.3 10^3/uL (0.0-0.8); MONO % 7.1 % (2.0-8.0); NEUTROPHILS # 3.6 10^3/uL (1.5-8.5); NEUTROPHILS % 80.1 % (36.0-66.0); PLATELET COUNT, AUTOMATED 145 10^3/uL (150-450); RED BLOOD COUNT 3.34 10^6/uL (4.00-5.40); WHITE BLOOD COUNT 4.5 10^3/uL (4.0-10.0)
[2024-07-30 12:43] LABS: VENOUS BASE EXCESS 2.5 (-2.0-2.0); VENOUS HCO3 27.2 MMOL/L (23.0-27.0); VENOUS O2 SATURATION 73.9 % (60.0-80.0); VENOUS PARTIAL PRESSURE CO2 42.3 mmHg (38.0-50.0); VENOUS PARTIAL PRESSURE O2 40.5 mmHg (30.0-50.0); VENOUS PH 7.426 UNITS (7.330-7.430); VENOUS STANDARD HCO3 26.2 MMOL/L; VENOUS TOTAL CO2 28.5 MMOL/L (24.0-28.0)
[2024-07-30 12:53] LABS: INR 0.93; PARTIAL THROMBOPLASTIN TIME 23.2 SECONDS (24.8-34.2); PROTHROMBIN TIME 12.7 SECONDS (12.5-14.5)
[2024-07-30] MEDS: cefTRIAXone SOD 2 GM in DEXTROSE 5% (D5W) ADV/MINI-BAG 50 ML IV ONE (16:15)
[2024-07-30] MEDS ORDERED: ERGO500029 PO (17:44)
[2024-07-30] MEDS ORDERED: SULF400T14 PO (17:51)
[2024-07-30] MEDS ORDERED: ACET-897 PO (17:53)
[2024-07-30] MEDS ORDERED: HOME MED LIST COMPLETE! XX SCH (17:55)
[2024-07-30] MEDS ORDERED: ONDANSETRON 4MG 2ML VIAL IV PRN (17:55)
[2024-07-30] MEDS: IPRATROPIUM 0.5MG/ALBUTEROL 2.5MG INH SOL UD 3ML (DUONEB) NEB SCH (20:56)
[2024-07-30] MEDS: DOXYCYCLINE HYCLATE 100 MG in DEXTROSE 5% (D5W) MINI-BAG PLU 100 ML IV SCH (21:48)
[2024-07-30] MEDS: NORTRIPTYLINE 25 MG CAP PO SCH (21:49)
[2024-07-30] MEDS: DOCUSATE SODIUM 100MG CAPSULE PO SCH (21:49)
[2024-07-30] MEDS: SENNA 8.6 MG TAB (SENOKOT) PO SCH (21:49)
[2024-07-30] MEDS: ACYCLOVIR 200 MG CAPSULE PO SCH (21:49)
[2024-07-30] MEDS: LORazepam 0.5 MG TAB PO PRN (22:12)
[2024-07-30] MEDS: ACETAMINOPHEN 325 MG TAB PO PRN (22:13)
[2024-07-31 03:25] VITALS: BP 112/61; TEMP 97; O2SAT 98
[2024-07-31 06:09] LABS: BASO % 0.3 % (0.0-1.0); EOS # 0.1 10^3/uL (0.0-0.5); EOS % 1.9 % (0.0-3.0); HEMATOCRIT 34.1 % (36.0-47.0); HEMOGLOBIN 10.8 g/dl (12.0-15.5); LYMPH # 0.3 10^3/uL (1.5-5.0); LYMPH % 9.3 % (24.0-44.0); MEAN CORPUSCULAR HEMOGLOBIN 32.6 pg (27.0-33.0); MEAN CORPUSCULAR HGB CONC 31.7 g/dl (32.0-36.5); MONO # 0.3 10^3/uL (0.0-0.8); MONO % 10.2 % (2.0-8.0); NEUTROPHILS # 2.4 10^3/uL (1.5-8.5); NEUTROPHILS % 75.2 % (36.0-66.0); PLATELET COUNT, AUTOMATED 123 10^3/uL (150-450); RED BLOOD COUNT 3.31 10^6/uL (4.00-5.40); WHITE BLOOD COUNT 3.2 10^3/uL (4.0-10.0)
[2024-07-31 06:27] LABS: CALCIUM LEVEL 7.6 MG/DL (8.3-10.6); CREATININE FOR GFR 2.83 MG/DL (0.55-1.30); GLOMERULAR FILTRATION RATE 18.1 (>45); POTASSIUM SERUM 3.3 MMOL/L (3.5-5.1)
[2024-07-31] MEDS: PANTOPRAZOLE 40MG TAB (PROTONIX) PO SCH (08:55)
[2024-07-31] MEDS: POTASSIUM CHLORIDE 10MEQ SR TABLET PO ONE (08:56)
[2024-07-31] MEDS: PARoxetine 10MG TABLET PO SCH (08:56)
[2024-07-31] MEDS ORDERED: SODIUM CHLORIDE 0.9% INJ 10 ML SYR IV SCH (09:00)
[2024-07-31] MEDS: BACTRIM 80MG/400MG TAB PO SCH (09:11)
[2024-07-31 12:00] VITALS: BP 117/73; TEMP 97; O2SAT 97
[2024-07-31] MEDS: cefTRIAXone SOD 2 GM in DEXTROSE 5% (D5W) ADV/MINI-BAG 50 ML IV SCH (16:09)
[2024-07-31] MEDS ORDERED: SODIUM CHLORIDE 0.9% INJ 10 ML SYR IV PRN (18:10)
[2024-07-31] MEDS: DOXYCYCLINE HYCLATE 100MG TABLET PO SCH (20:32)
[2024-07-31 20:39] VITALS: BP 117/73; TEMP 97.3; O2SAT 97
[2024-08-01 04:59] LABS: BASO % 0.7 % (0.0-1.0); EOS # 0.1 10^3/uL (0.0-0.5); HEMATOCRIT 32.1 % (36.0-47.0); LYMPH # 0.4 10^3/uL (1.5-5.0); LYMPH % 12.6 % (24.0-44.0); MEAN CORPUSCULAR HEMOGLOBIN 32.5 pg (27.0-33.0); MEAN CORPUSCULAR HGB CONC 31.2 g/dl (32.0-36.5); MEAN CORPUSCULAR VOLUME 104.2 fl (80.0-96.0); MONO # 0.4 10^3/uL (0.0-0.8); MONO % 11.9 % (2.0-8.0); PLATELET COUNT, AUTOMATED 113 10^3/uL (150-450); RED BLOOD COUNT 3.08 10^6/uL (4.00-5.40); WHITE BLOOD COUNT 2.9 10^3/uL (4.0-10.0)
[2024-08-01 05:46] LABS: CALCIUM LEVEL 7.3 MG/DL (8.3-10.6); CREATININE FOR GFR 3.22 MG/DL (0.55-1.30); GLOMERULAR FILTRATION RATE 15.6 (>45); POTASSIUM SERUM 3.8 MMOL/L (3.5-5.1)
[2024-08-01] MEDS ORDERED: LIDOCAINE 1% SDV 5ML VIAL SC PRN (06:00)
[2024-08-01] MEDS ORDERED: SODIUM CHLORIDE 0.9% 1000 ML IV PRN (06:00)
[2024-08-01] MEDS ORDERED: HEPARIN 1,000UNITS/ML 10ML VIAL (FOR RADIOLOGY & DIALYSIS ONLY) IV PRN (06:00)
[2024-08-01 06:27] VITALS: BP 117/70; TEMP 97.2; O2SAT 96
[2024-08-01] MEDS: SODIUM CHLORIDE 0.9% INJ 10 ML SYR IV SCH (06:27)
[2024-08-01 12:00] VITALS: BP 117/71; TEMP 97.3; O2SAT 95
[2024-08-01] MEDS: HEPARIN 1,000UNITS/ML 10ML VIAL (FOR RADIOLOGY & DIALYSIS ONLY) XX SCH (13:59)
[2024-08-01 20:05] VITALS: BP 110/60; TEMP 97; O2SAT 94
[2024-08-02 04:21] VITALS: BP 108/68; TEMP 97.3; O2SAT 92
[2024-08-02 06:01] LABS: EOS # 0.1 10^3/uL (0.0-0.5); EOS % 1.7 % (0.0-3.0); HEMATOCRIT 32.4 % (36.0-47.0); HEMOGLOBIN 10.5 g/dl (12.0-15.5); LYMPH # 0.4 10^3/uL (1.5-5.0); LYMPH % 15.4 % (24.0-44.0); MEAN CORPUSCULAR HEMOGLOBIN 33.1 pg (27.0-33.0); MEAN CORPUSCULAR HGB CONC 32.4 g/dl (32.0-36.5); MEAN CORPUSCULAR VOLUME 102.2 fl (80.0-96.0); MONO # 0.4 10^3/uL (0.0-0.8); MONO % 12.2 % (2.0-8.0); NEUTROPHILS # 1.9 10^3/uL (1.5-8.5); NEUTROPHILS % 66.2 % (36.0-66.0); RED BLOOD COUNT 3.17 10^6/uL (4.00-5.40); WHITE BLOOD COUNT 2.9 10^3/uL (4.0-10.0)
[2024-08-02 06:34] LABS: PLATELET COUNT, AUTOMATED 98 10^3/uL (150-450)
[2024-08-02 06:36] LABS: CALCIUM LEVEL 7.5 MG/DL (8.3-10.6); CREATININE FOR GFR 2.17 MG/DL (0.55-1.30); GLOMERULAR FILTRATION RATE 24.5 (>45); POTASSIUM SERUM 3.7 MMOL/L (3.5-5.1)
[2024-08-02] MEDS ORDERED: CEFD1CAP9 PO (08:26)
[2024-08-02] MEDS ORDERED: DOXY100T PO (08:26)
== END 2024-08-02 10:16 | disposition home or self-care (01) | DRG 193 ==
LOC: M ED 10:21 → M ED INP 17:53 → M MSPAV 07-31 03:20
PROVIDERS: ADMIT Internal Medicine Nephrology; ATTEND Internal Medicine Nephrology
DX: J18.9 Pneumonia, unspecified organism (principal); N18.6 End stage renal disease; J84.9 Interstitial pulmonary disease, unspecified; C90.00 Multiple myeloma not having achieved remission; J47.0 Bronchiectasis with acute lower respiratory infection; J44.0 Chronic obstructive pulmonary disease with (acute) lower respiratory infection; D84.9 Immunodeficiency, unspecified; C79.51 Secondary malignant neoplasm of bone; J43.9 Emphysema, unspecified; R91.8 Other nonspecific abnormal finding of lung field; E87.5 Hyperkalemia; D63.1 Anemia in chronic kidney disease; D63.0 Anemia in neoplastic disease; E55.9 Vitamin D deficiency, unspecified; F41.9 Anxiety disorder, unspecified; M81.0 Age-related osteoporosis without current pathological fracture; E78.5 Hyperlipidemia, unspecified; R11.10 Vomiting, unspecified; Z66 Do not resuscitate; Z87.891 Personal history of nicotine dependence; Z99.2 Dependence on renal dialysis; Z79.69 Long term (current) use of other immunomodulators and immunosuppressants; Z92.3 Personal history of irradiation

== ENCOUNTER → 2024-10-14 | Outpatient (CLI) | payer MEDICARE, OTHER ==
[~2024-10-14] MED LIST changes: +ACET-897 PO; +DOXY100T PO; +ERGO500029 PO; +SULF400T14 PO
== END ==
LOC: M PLAIMG 14:58
PROVIDERS: ATTEND Internal Medicine Pulmonary Disease
DX: R91.8 Other nonspecific abnormal finding of lung field (principal)

== ENCOUNTER 2024-12-10 09:16 | Emergency (ER) | payer MEDICARE, OTHER ==
[2024-12-10 09:26] VITALS: BP 122/67; TEMP 97.3; O2SAT 98
[2024-12-10] MEDS ORDERED: PRED10TA2 PO (21:40)
[2024-12-10] MEDS ORDERED: ALBU2.5V10 NEB (21:40)
== END 2024-12-10 12:23 | disposition left against medical advice (07) ==
LOC: M ED 09:16
DX: Z53.21 Procedure and treatment not carried out due to patient leaving prior to being seen by health care provider (principal)

== ENCOUNTER 2024-12-10 15:31 | Emergency (ER) | payer MEDICARE, OTHER ==
[~2024-12-10] VITALS: Ht 154.9 cm; Wt 69.1 kg
[2024-12-10 15:40] VITALS: TEMP 97.3
[2024-12-10 16:44] LABS: VENOUS BASE EXCESS -4.5 (-2.0-2.0); VENOUS HCO3 21.9 MMOL/L (23.0-27.0); VENOUS O2 SATURATION 47.3 % (60.0-80.0); VENOUS PARTIAL PRESSURE CO2 45.5 mmHg (38.0-50.0); VENOUS PARTIAL PRESSURE O2 28.1 mmHg (30.0-50.0); VENOUS PH 7.301 UNITS (7.330-7.430); VENOUS STANDARD HCO3 19.7 MMOL/L; VENOUS TOTAL CO2 23.3 MMOL/L (24.0-28.0)
[2024-12-10 16:49] LABS: BASO # 0.0 10^3/uL (0.0-0.2); BASO % 0.6 % (0.0-1.0); EOS # 0.2 10^3/uL (0.0-0.5); EOS % 5.5 % (0.0-3.0); LYMPH # 0.6 10^3/uL (1.5-5.0); LYMPH % 15.2 % (24.0-44.0); MONO # 0.2 10^3/uL (0.0-0.8); MONO % 6.4 % (2.0-8.0); NEUTROPHILS # 2.6 10^3/uL (1.5-8.5); NEUTROPHILS % 72.0 % (36.0-66.0); PLATELET COUNT, AUTOMATED 141 10^3/uL (150-450)
[2024-12-10 17:20] LABS: CK-MB VALUE MASS 2.3 NG/ML (<3.6)
[2024-12-10 17:21] LABS: CPK CREATINE PHOSPHOKINASE 58.0 U/L (34-145); MB/CK RELATIVE INDEX 3.96 (< OR =4)
[2024-12-10 17:22] LABS: CALCIUM LEVEL 8.9 MG/DL (8.3-10.6); CARBON DIOXIDE LEVEL 25.0 MMOL/L (20-31); CHLORIDE LEVEL 106.0 MMOL/L (98-107); CREATININE FOR GFR 3.11 MG/DL (0.55-1.30); GLOMERULAR FILTRATION RATE 16.4 (>45); POTASSIUM SERUM 4.8 MMOL/L (3.5-5.1); SODIUM LEVEL 142.0 MMOL/L (136-145)
[2024-12-10] MEDS: IPRATROPIUM 0.5 MG/ALBUTEROL 2.5 MG INH SOL UD 3 ML NEB SCH (17:50)
[2024-12-10 19:30] VITALS: BP 130/63
[2024-12-10 21:30] VITALS: O2SAT 96
[2024-12-10] MEDS ORDERED: PRED10TA2 PO (21:40)
[2024-12-10] MEDS ORDERED: ALBU2.5V10 NEB (21:40)
== END 2024-12-10 22:24 | disposition home or self-care (01) ==
LOC: M ED 15:31
DX: J44.9 Chronic obstructive pulmonary disease, unspecified (principal); J12.2 Parainfluenza virus pneumonia; Z87.891 Personal history of nicotine dependence; Z79.1 Long term (current) use of non-steroidal anti-inflammatories (NSAID); Z79.2 Long term (current) use of antibiotics; Z79.51 Long term (current) use of inhaled steroids; Z79.899 Other long term (current) drug therapy; Z79.52 Long term (current) use of systemic steroids
CPT/HCPCS: 71046; 80048; 82550; 82553; 82803; 83605; 83880; 84484; 85025; 87040; 87486; 87581; 87633; 87798; 93041; 94640; 94760; 96374; 99281; 99285; J1100

== ENCOUNTER → 2025-01-27 | Outpatient (CLI) | payer MEDICARE, OTHER ==
[~2025-01-27] MED LIST changes: +ACYC1CAP20 PO; +ACYC200C10 PO; -ACYC200C8 PO; +ALBU2.5V10 INH; +ALBU2.5V10 NEB; +ANOR1AER PO; +ATOR1TAB19 PO; +POTA-151 PO; +PRED10TA2 PO; +SULF400T14
== END ==
LOC: M LAB 12:33
PROVIDERS: ATTEND Internal Medicine Hematology & Oncology
DX: C90.00 Multiple myeloma not having achieved remission (principal)

== ENCOUNTER 2025-01-31 10:56 | Inpatient (IN) | payer MEDICARE ==
[~2025-01-31] VITALS: Ht 154.9 cm; Wt 73.9 kg
[~2025-01-31 10:56] MED LIST changes: -ACYC1CAP20 PO; -ALBU2.5V10 INH; -ANOR1AER PO; -ATOR1TAB19 PO; -POTA-151 PO
[2025-01-31] MEDS ORDERED: HEPARIN LOCK FLUSH 100 UNITS/ML 3 ML SYRINGE IV PRN (11:30)
[2025-01-31] MEDS ORDERED: SODIUM CHLORIDE 0.9% INJ 10 ML SYR IV PRN (11:30)
[2025-01-31] MEDS: ALBUTEROL SULFATE 2.5 MG/0.5 ML INH CONCENTRATE NEB SOLN INH ONE (11:55)
[2025-01-31] MEDS: IPRATROPIUM 0.5 MG/ALBUTEROL 2.5 MG INH SOL UD 3 ML NEB ONE (11:55)
[2025-01-31 12:00] LABS: ABG BASE EXCESS -2.4 (-2.0-2.0); ABG HCO3 20.4 MMOL/L (22.0-26.0); ABG O2 SATURATION 98.4 % (95.0-99.0); ABG PARTIAL PRESSURE CO2 29.3 mmHg (35.0-45.0); ABG PARTIAL PRESSURE O2 117.8 mmHg (75.0-100.0); ABG STANDARD HCO3 22.5 MMOL/L. (22.0-26.0); ABG TOTAL CO2 21.3 MMOL/L (23.0-31.0); ABG pH (ARTERIAL) 7.460 UNITS (7.350-7.450)
[2025-01-31 12:55] LABS: VENOUS BASE EXCESS -2.4 (-2.0-2.0); VENOUS HCO3 24.4 MMOL/L (23.0-27.0); VENOUS O2 SATURATION 54.0 % (60.0-80.0); VENOUS PARTIAL PRESSURE CO2 50.1 mmHg (38.0-50.0); VENOUS PARTIAL PRESSURE O2 31.4 mmHg (30.0-50.0); VENOUS PH 7.305 UNITS (7.330-7.430); VENOUS STANDARD HCO3 21.6 MMOL/L; VENOUS TOTAL CO2 25.9 MMOL/L (24.0-28.0)
[2025-01-31 13:02] LABS: BASO # 0.0 10^3/uL (0.0-0.2); BASO % 0.5 % (0.0-1.0); EOS # 0.3 10^3/uL (0.0-0.5); EOS % 3.1 % (0.0-3.0); LYMPH # 0.7 10^3/uL (1.5-5.0); LYMPH % 8.3 % (24.0-44.0); MONO # 0.6 10^3/uL (0.0-0.8); MONO % 7.5 % (2.0-8.0); NEUTROPHILS # 6.3 10^3/uL (1.5-8.5); NEUTROPHILS % 79.1 % (36.0-66.0); PLATELET COUNT, AUTOMATED 126 10^3/uL (150-450)
[2025-01-31] MEDS: NS 500 ML IV ONE ×2 (13:15→18:58)
[2025-01-31 13:33] LABS: ALT/SGPT 20.0 U/L (7.0-40); AST/SGOT 19.0 U/L (<34); CALCIUM LEVEL 8.7 MG/DL (8.3-10.6); CARBON DIOXIDE LEVEL 28.0 MMOL/L (20-31); CHLORIDE LEVEL 101.0 MMOL/L (98-107); CK-MB VALUE MASS 2.5 NG/ML (<3.6); CPK CREATINE PHOSPHOKINASE 49.0 U/L (34-145); CREATININE FOR GFR 3.1 MG/DL (0.55-1.30); GLOMERULAR FILTRATION RATE 16.5 (>45); MB/CK RELATIVE INDEX 5.1 (< OR =4); POTASSIUM SERUM 3.2 MMOL/L (3.5-5.1); SODIUM LEVEL 141.0 MMOL/L (136-145)
[2025-01-31 13:59] LABS: CK-MB VALUE MASS 2.4 NG/ML (<3.6)
[2025-01-31 14:01] LABS: CPK CREATINE PHOSPHOKINASE 52.0 U/L (34-145); MB/CK RELATIVE INDEX 4.61 (< OR =4)
[2025-01-31] MEDS ORDERED: DEXTROMETHORPHAN 60 MG/10 ML SUSP 90 ML BTL PO PRN (14:50)
[2025-01-31] MEDS: AZITHROMYCIN 250 MG TABLET PO SCH (15:12)
[2025-01-31] MEDS: POTASSIUM CHLORIDE 10MEQ SR TABLET PO ONE (15:12)
[2025-01-31] MEDS: IPRATROPIUM 0.5 MG/ALBUTEROL 2.5 MG INH SOL UD 3 ML NEB SCH (15:29)
[2025-01-31] MEDS ORDERED: LORazepam 0.5 MG TAB PO PRN (15:50)
[2025-01-31] MEDS ORDERED: ALBU2.5V10 INH (15:52)
[2025-01-31] MEDS ORDERED: ATOR1TAB19 PO (15:52)
[2025-01-31] MEDS ORDERED: ANOR1AER PO (15:52)
[2025-01-31] MEDS ORDERED: ALEN70TA82 PO (15:52)
[2025-01-31] MEDS ORDERED: ACYC1CAP20 PO (15:52)
[2025-01-31] MEDS ORDERED: POTA-151 PO (15:52)
[2025-01-31] MEDS ORDERED: HOME MED LIST COMPLETE! XX SCH (15:55)
[2025-01-31 16:19] VITALS: BP 127/85; TEMP 97.9; O2SAT 97
[2025-01-31] MEDS: HEPARIN SOD 5000 UNITS/ML 1 ML VIAL/SYRINGE SQ SCH (16:56)
[2025-01-31] MEDS: BUDESONIDE 0.5 MG/2 ML INHALATION SUSPENSION NEB SCH (19:27)
[2025-01-31 19:31] VITALS: BP 107/56; TEMP 98.1; O2SAT 96
[2025-01-31] MEDS: NORTRIPTYLINE 25 MG CAP PO SCH (21:11)
[2025-01-31] MEDS: ACYCLOVIR 200 MG CAPSULE PO SCH (21:12)
[2025-01-31] MEDS: OYSTER SHELL CALCIUM 500 MG TAB PO SCH (21:12)
[2025-01-31] MEDS: BENZONATATE 100 MG CAPSULE PO SCH (21:12)
[2025-01-31 23:46] VITALS: BP 109/59; TEMP 98.1; O2SAT 97
[2025-02-01 03:34] VITALS: BP 110/62; TEMP 97.3; O2SAT 98
[2025-02-01 06:35] LABS: PLATELET COUNT, AUTOMATED 138 10^3/uL (150-450)
[2025-02-01 07:25] LABS: CALCIUM LEVEL 8.6 MG/DL (8.3-10.6); CARBON DIOXIDE LEVEL 21.0 MMOL/L (20-31); CHLORIDE LEVEL 110.0 MMOL/L (98-107); CREATININE FOR GFR 2.88 MG/DL (0.55-1.30); GLOMERULAR FILTRATION RATE 18.0 (>45); POTASSIUM SERUM 4.9 MMOL/L (3.5-5.1); SODIUM LEVEL 145.0 MMOL/L (136-145)
[2025-02-01] MEDS: TRIMETHOPRIM/SULFAMETH 80/400 MG TAB PO SCH (08:13)
[2025-02-01] MEDS: PARoxetine 10MG TABLET PO SCH (08:13)
[2025-02-01 08:14] VITALS: O2SAT 97
[2025-02-01] MEDS: ATORVASTATIN 20 MG TAB PO SCH (08:14)
[2025-02-01] MEDS: PANTOPRAZOLE 40MG TAB PO SCH (08:14)
[2025-02-01 09:00] VITALS: O2SAT 93
[2025-02-01] MEDS ORDERED: HEPARIN LOCK FLUSH 100 UNITS/ML 3 ML SYRINGE IV SCH (09:00)
[2025-02-01] MEDS ORDERED: SODIUM CHLORIDE 0.9% INJ 10 ML SYR IV SCH (09:00)
[2025-02-01 10:01] VITALS: O2SAT 93
[2025-02-01 12:00] VITALS: BP 110/63; TEMP 97.5; O2SAT 95
[2025-02-01 19:57] VITALS: BP 109/63; TEMP 97.7; O2SAT 95
[2025-02-02 03:26] VITALS: BP 113/66; TEMP 97.3; O2SAT 93
[2025-02-02 05:08] VITALS: BP 115/61; TEMP 97.7; O2SAT 96
[2025-02-02] MEDS ORDERED: HEPARIN 1,000 UNITS/ML 10 ML VIAL (FOR RADIOLOGY & DIALYSIS ONLY) IV PRN (06:00)
[2025-02-02] MEDS ORDERED: SODIUM CHLORIDE 0.9% 1000 ML IV PRN (06:00)
[2025-02-02 06:19] LABS: BASO # 0.0 10^3/uL (0.0-0.2); BASO % 0.1 % (0.0-1.0); EOS # 0.0 10^3/uL (0.0-0.5); EOS % 0.0 % (0.0-3.0); LYMPH # 0.2 10^3/uL (1.5-5.0); LYMPH % 1.1 % (24.0-44.0); MONO # 0.5 10^3/uL (0.0-0.8); MONO % 2.6 % (2.0-8.0); NEUTROPHILS # 19.7 10^3/uL (1.5-8.5); NEUTROPHILS % 94.9 % (36.0-66.0); PLATELET COUNT, AUTOMATED 160 10^3/uL (150-450)
[2025-02-02 06:54] LABS: CALCIUM LEVEL 9.1 MG/DL (8.3-10.6); CARBON DIOXIDE LEVEL 19.0 MMOL/L (20-31); CHLORIDE LEVEL 113.0 MMOL/L (98-107); CREATININE FOR GFR 2.88 MG/DL (0.55-1.30); GLOMERULAR FILTRATION RATE 18.0 (>45); POTASSIUM SERUM 4.9 MMOL/L (3.5-5.1); SODIUM LEVEL 145.0 MMOL/L (136-145)
[2025-02-02 11:56] VITALS: BP 118/69; TEMP 97.7; O2SAT 94
[2025-02-02] MEDS: HEPARIN 1,000 UNITS/ML 10 ML VIAL (FOR RADIOLOGY & DIALYSIS ONLY) XX SCH (13:20)
[2025-02-02 20:21] VITALS: BP 104/61; TEMP 97.2; O2SAT 94
[2025-02-03 04:00] VITALS: BP 127/70; TEMP 97.5; O2SAT 94
[2025-02-03 08:00] VITALS: BP 113/61; TEMP 97.7; O2SAT 96
[2025-02-03 12:00] VITALS: BP 120/70; TEMP 97.9; O2SAT 98
[2025-02-03 20:17] VITALS: BP 132/76; TEMP 97.5; O2SAT 92
[2025-02-03] MEDS: predniSONE 20 MG TAB PO SCH (20:41)
[2025-02-04 04:22] VITALS: BP 129/76; TEMP 98.1; O2SAT 93
[2025-02-04] MEDS ORDERED: SODIUM CHLORIDE 0.9% 1000 ML IV PRN (06:00)
[2025-02-04] MEDS ORDERED: HEPARIN 1,000 UNITS/ML 10 ML VIAL (FOR RADIOLOGY & DIALYSIS ONLY) IV PRN (06:00)
[2025-02-04] MEDS ORDERED: VENTAER INH (06:47)
[2025-02-04] MEDS ORDERED: PRED10TA2 PO (06:47)
[2025-02-04] MEDS: HEPARIN 1,000 UNITS/ML 10 ML VIAL (FOR RADIOLOGY & DIALYSIS ONLY) XX SCH (09:08)
[2025-02-04 12:25] VITALS: BP 160/100; TEMP 97.5; O2SAT 96
[2025-02-04 13:02] VITALS: BP 162/100
[2025-02-04] MEDS: amLODIPine 10 MG TAB PO ONE (13:02)
[2025-02-04 14:00] VITALS: BP 110/76
== END 2025-02-04 14:29 | disposition home or self-care (01) | DRG 190 ==
LOC: M ED 10:56 → M ED INP 14:47 → M MSPAV 16:16
PROVIDERS: ADMIT Internal Medicine; ATTEND General Practice
PROC: 5A1D70Z Performance of Urinary Filtration, Intermittent, Less than 6 Hours Per Day (ICD-10-PCS; principal; 2025-02-02)
DX: J44.1 Chronic obstructive pulmonary disease with (acute) exacerbation (principal); N18.6 End stage renal disease; E87.20 Acidosis, unspecified; C90.00 Multiple myeloma not having achieved remission; E87.6 Hypokalemia; F41.9 Anxiety disorder, unspecified; F32.A Depression, unspecified; E55.9 Vitamin D deficiency, unspecified; E78.5 Hyperlipidemia, unspecified; M81.0 Age-related osteoporosis without current pathological fracture; K21.9 Gastro-esophageal reflux disease without esophagitis; D64.9 Anemia, unspecified; Z66 Do not resuscitate; Z79.52 Long term (current) use of systemic steroids; Z79.899 Other long term (current) drug therapy; Z79.69 Long term (current) use of other immunomodulators and immunosuppressants; Z87.891 Personal history of nicotine dependence; Z99.2 Dependence on renal dialysis

== ENCOUNTER → 2025-03-01 | Outpatient (REF) | payer MEDICARE, OTHER ==
[~2025-03-01] MED LIST changes: +ACYC1CAP20 PO; +ALBU2.5V10 INH; +ANOR1AER PO; +ATOR1TAB19 PO; +POTA-151 PO
== END ==
LOC: M LAB REF 15:40
PROVIDERS: ATTEND Surgery
DX: L72.11 Pilar cyst (principal)

== ENCOUNTER → 2025-03-15 | Outpatient (CLI) | payer MEDICARE, OTHER ==
[~2025-03-15] MED LIST changes: +HEPARIN 1,000 UNITS/ML 10 ML VIAL (FOR RADIOLOGY & DIALYSIS ONLY) IV PRN; +TREL1AER
[2025-03-15 07:15] VITALS: TEMP 97.7
[2025-03-15] MEDS: MIDAZOLAM INJ 2 MG/2 ML VIAL IV PRN (08:03)
[2025-03-15] MEDS: LIDOCAINE 1% MDV 20 ML VIAL SC SCH (08:04)
[2025-03-15] MEDS: NS (Normal Saline) 0.9% 1,000 ML IV SCH (08:05)
[2025-03-15 08:15] VITALS: BP 117/57; O2SAT 95
[2025-03-15] MEDS: HEPARIN LOCK FLUSH 100 UNITS/ML 3 ML SYRINGE IV SCH (08:34)
== END ==
LOC: M IRPRO 07:07
PROVIDERS: ATTEND Internal Medicine Nephrology
DX: N18.6 End stage renal disease (principal)
CPT/HCPCS: 36590; 99152; J1642; J2250; J3010

== ENCOUNTER 2025-05-12 06:47 | Outpatient (CLI) | payer MEDICARE, OTHER ==
[~2025-05-12] VITALS: Ht 154.9 cm; Wt 79.0 kg
[~2025-05-12 06:47] MED LIST changes: -HEPARIN 1,000 UNITS/ML 10 ML VIAL (FOR RADIOLOGY & DIALYSIS ONLY) IV PRN; +NS (Normal Saline) 0.9% 1,000 ML IV SCH; -SULF400T14; -SULF400T14 PO; +SULF400T15; +SULF400T15 PO
[2025-05-12] MEDS ORDERED: diphenhydrAMINE 50 MG/ML VIAL IV PRN (07:01)
[2025-05-12] MEDS ORDERED: EPINEPHrine INJ 1 MG/ML 1ML AMP IM PRN (07:01)
[2025-05-12] MEDS ORDERED: ALBUTEROL SULFATE 2.5 MG/0.5 ML INH CONCENTRATE NEB SOLN INH PRN (07:01)
[2025-05-12 07:15] VITALS: BP 137/74; O2SAT 97
[2025-05-12] MEDS: ACETAMINOPHEN 650MG PO PRIOR TO INFUSION PO ONE (07:30)
[2025-05-12] MEDS: diphenhydrAMINE 25MG PO PRIOR TO INFUSION PO ONE (07:30)
[2025-05-12] MEDS: IMMUNE GLOBULIN 10% 5 GM in IV 1 EA IV ONE (08:19)
[2025-05-12] MEDS: IMMUNE GLOBULIN 10% 10 GM in IV 1 EA IV ONE (08:20)
[2025-05-12 08:50] VITALS: BP 113/65; O2SAT 96
[2025-05-12 09:25] VITALS: BP 126/62; O2SAT 95
[2025-05-12 10:19] VITALS: BP 140/69; O2SAT 95
[2025-05-12 11:15] VITALS: BP 134/72; O2SAT 95
[2025-05-12 11:30] VITALS: BP 134/72; O2SAT 95
== END 2025-05-12 10:30 | disposition home or self-care (01) ==
LOC: M INFU 06:47
PROVIDERS: ATTEND Internal Medicine Medical Oncology
DX: D80.1 Nonfamilial hypogammaglobulinemia (principal)
CPT/HCPCS: 96365; 96366; 96367; J1100; J1459